=== PATIENT | female | born 1960 | race Caucasian/White ===

== ENCOUNTER 2016-08-16 06:59 | Day surgery (SDC) | payer OTHER ==
[2016-08-13 10:33] VITALS: BMI 26.2
[~2016-08-16 06:59] MED LIST: LACTATED RINGERS 1,000 ML IV SCH; LIDOCAINE 1% 20 ML VIAL (10MG/ML) FOR IV START INTRADERMA PRN
[2016-08-16 07:12] VITALS: RESP 18; TEMP 97.1
[2016-08-16 07:18] LABS: Glucose,Whole Blood 151 mg/dL (75-99)
[2016-08-16] MEDS ORDERED: PROPOFOL 10 MG/ML 20 ML VIAL IV ONE (07:36)
--- NOTE | 2016-08-16 07:51 | P.PCN ---
Date of Procedure: 08/16/16 Procedure(s) Performed: BRIEF HISTORY: Patient is a 56-year-old, pleasant, white female, scheduled for an upper endoscopy as a part of evaluation of progressive dysphagia to solids. 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 Symptoms are progressively getting worse and hence he scheduled for repeat upper endoscopy with dilation today. PROCEDURE PERFORMED: Esophagoscopy with dilation PREOPERATIVE DIAGNOSIS: Progressive dysphagia to solids and history of esophageal stricture. IV sedation per anesthesia. PROCEDURE: After informed consent was obtained, the patient was brought into the endoscopy unit. IV conscious sedation was administered by Anesthesia under continuous monitoring. Initially the Olympus GIF-140 video endoscope was inserted into the mouth. Esophagus intubated without any difficulty. There was a tight stricture noted in the proximal cervical esophagus 15 cm from the incisors. The scope could not be advanced beyond the stricture. The stricture had a very benign appearance. At this time the stricture was dilated using 8, 9 and 10 mm TTS balloon sequentially for total of 1-1/2 minutes. Following the dilation was not able to advance the scope beyond the stricture. Hence the procedure was terminated and the patient tolerated the procedure well. IMPRESSION: 1. Tight proximal cervical radiation-induced esophageal stricture status post balloon dilation using 8, 9 and 10 mm TTS balloon as described. 2. Scope could not be advanced into the stomach. RECOMMENDATIONS: The findings of this examination were discussed with the patient as well as a family. She was advised to remain on liquid diet for lunch today and advance as tolerated. She will follow up in the office as needed.
[2016-08-16 08:32] VITALS: BP 147/77; PULSE 74
[2016-08-16 08:34] LABS: Glucose,Whole Blood 169 mg/dL (75-99)
== END 2016-08-16 09:10 | disposition home or self-care (01) ==
LOC: ORWHC2ENDO 06:59
PROVIDERS: ATTEND Internal Medicine Gastroenterology
DX: K22.2 Esophageal obstruction (principal); E78.5 Hyperlipidemia, unspecified; J45.909 Unspecified asthma, uncomplicated; E07.9 Disorder of thyroid, unspecified; K21.9 Gastro-esophageal reflux disease without esophagitis; R73.9 Hyperglycemia, unspecified; Z88.5 Allergy status to narcotic agent; Z79.4 Long term (current) use of insulin; Z79.899 Other long term (current) drug therapy
CPT/HCPCS: 43249; J2704; C1726

== ENCOUNTER 2020-12-01 07:36 | Day surgery (SDC) | payer OTHER ==
[2020-11-30 08:37] VITALS: BMI 22.3
[~2020-12-01 07:36] MED LIST changes: -LIDOCAINE 1% 20 ML VIAL (10MG/ML) FOR IV START INTRADERMA PRN
[2020-12-01 08:07] VITALS: TEMP 98.2
[2020-12-01] MEDS ORDERED: LIDOCAINE 1% (10MG/ML) FOR IV START INTRADERMA ONE (08:17)
[2020-12-01 08:21] LABS: Glucose,Whole Blood 217 mg/dL (75-99)
[2020-12-01] MEDS ORDERED: INSULIN ASPART (NovoLOG) 100 UNIT/ML VIAL SQ ONE (08:40)
[2020-12-01] MEDS ORDERED: PROPOFOL 10 MG/ML 20 ML VIAL IV ONE (08:48)
[2020-12-01] MEDS ORDERED: LIDOCAINE 1% INJ 10MG/ML (20 ML MDV) ONE (08:48)
--- NOTE | 2020-12-01 09:02 | P.PCN ---
Date of Procedure: 12/01/20 Procedure(s) Performed: BRIEF HISTORY: Patient is a 52-year-old, pleasant, 8 white female scheduled for an upper endoscopy with dilation as a part of evaluation of dysphagia to solids. She has history of head and neck CA for which she underwent duration therapy 15 years ago and developed and radiation-induced proximal esophageal stricture for which she undergoes EGD with dilation on a periodic basis. The last one was in June 2019.. PROCEDURE PERFORMED: Esophagoscopy With dilation PREOPERATIVE DIAGNOSIS: Progressive dysphagia to solids and history of radiation-induced proximal esophageal stricture IV sedation per anesthesia. PROCEDURE: After informed consent was obtained, the patient was brought into the endoscopy unit. IV sedation was administered by Anesthesia under continuous monitoring. Initially the Olympus GIF-140 video endoscope was inserted into the mouth. Esophagus intubated without any difficulty. It was gradually advanced into the proximal esophagus where there was a tight esophagus stricture which are identified at 20 cm from the incisors. The scope could not be advanced the stricture. At this time he was dilated using 8-10 mm TTS balloon in a sequential fashion for 90 seconds. Following this I was not able to advance the scope into the distal esophagus. At this time the procedure was terminated and the patient tolerated the procedure well. IMPRESSION: 1. Proximal esophageal stricture status post balloon dilation using 8-10 mm TTS balloon in a sequential fashion as described above. 2. Scope could not be advanced through the stricture REOMMENDATIONS: The findings of this examination were discussed with the patient as well as her family. She will remain on a clear liquid diet for lunch today. She'll follow up in office as needed..
[2020-12-01 09:16] LABS: Glucose,Whole Blood 201 mg/dL (75-99)
[2020-12-01 09:20] VITALS: BP 125/77; PULSE 76; RESP 17
== END 2020-12-01 09:44 | disposition home or self-care (01) ==
LOC: ORWHC2ENDO 07:36
PROVIDERS: ATTEND Internal Medicine Gastroenterology
DX: K22.2 Esophageal obstruction (principal); Z92.3 Personal history of irradiation; I10 Essential (primary) hypertension; J44.9 Chronic obstructive pulmonary disease, unspecified; E11.8 Type 2 diabetes mellitus with unspecified complications; K21.9 Gastro-esophageal reflux disease without esophagitis; Z90.49 Acquired absence of other specified parts of digestive tract; Z98.51 Tubal ligation status; Z98.890 Other specified postprocedural states; Z80.0 Family history of malignant neoplasm of digestive organs; Z97.2 Presence of dental prosthetic device (complete) (partial); Z79.4 Long term (current) use of insulin; Z79.899 Other long term (current) drug therapy; Z88.5 Allergy status to narcotic agent
CPT/HCPCS: 43249; J2001; J2704; C1726

== ENCOUNTER 2021-12-05 07:51 | Day surgery (SDC) | payer OTHER ==
[2021-12-03 16:06] VITALS: BMI 27.4
[~2021-12-05 07:51] MED LIST changes: +LIDOCAINE 1% (10MG/ML) FOR IV START INTRADERMA PRN
[2021-12-05 08:42] VITALS: TEMP 97.1
[2021-12-05 09:06] LABS: Glucose,Whole Blood 133 mg/dL (75-99)
[2021-12-05] MEDS ORDERED: PROPOFOL 10 MG/ML 20 ML VIAL IV ONE (09:31)
--- NOTE | 2021-12-05 09:42 | P.PCN ---
Date of Procedure: 12/05/21 Procedure(s) Performed: BRIEF HISTORY: Patient is a 61-year-old, pleasant, white female scheduled for an upper endoscopy as a part of evaluation of progressive dysphagia to solids. She has history of proximal esophageal radiation induced stricture diagnosed several years ago. Patient has history of head and neck cancer in 2004 and is status post chemoradiation as well as surgery. She had multiple upper endoscopies with dilation performed in the last one was done in November 2020. Because of the worsening symptoms she is scheduled for repeat upper endoscopy with dilation today. PROCEDURE PERFORMED: Esophagoscopy with balloon dilation. PREOPERATIVE DIAGNOSIS: Aggressive dysphagia to solids and history of proximal esophageal radiation stricture. IV sedation per anesthesia. PROCEDURE: After informed consent was obtained, the patient was brought into the endoscopy unit. IV sedation was administered by Anesthesia under continuous monitoring. Initially the Olympus GIF-140 video endoscope was inserted into the mouth. Esophagus intubated without any difficulty. There was a benign-appearing tight proximal esophageal stricture at 40 cm from the anal verge. Scope could not be advanced through the stricture. At this time I proceeded with balloon dilation using 10-12 mm balloon in a sequential fashion for 60 seconds. Following the dilation I was still not able to advance the scope through the stricture. At this time the procedure was terminated and the patient tolerated the procedure well. IMPRESSION: 1. Tight proximal esophageal stricture status post balloon dilation using 10-11 mm TTS balloon. 2. Scope could not be advanced beyond the proximal esophageal stricture. RECOMMENDATIONS: The findings of this examination were discussed with the patient as well as her family. She was advised to be on a clear liquid diet today. Follow-up in the office in 6 months.
[2021-12-05 10:04] LABS: Glucose,Whole Blood 125 mg/dL (75-99)
[2021-12-05 10:05] VITALS: BP 105/70; PULSE 84; RESP 14
== END 2021-12-05 10:46 | disposition home or self-care (01) ==
LOC: ORWHC2ENDO 07:51
PROVIDERS: ATTEND Internal Medicine Gastroenterology
DX: K22.2 Esophageal obstruction (principal); Y84.2 Radiological procedure and radiotherapy as the cause of abnormal reaction of the patient, or of later complication, without mention of misadventure at the time of the procedure; Z92.21 Personal history of antineoplastic chemotherapy; J44.9 Chronic obstructive pulmonary disease, unspecified; Z85.21 Personal history of malignant neoplasm of larynx; Z90.02 Acquired absence of larynx; Z79.899 Other long term (current) drug therapy; Z79.4 Long term (current) use of insulin; Z88.5 Allergy status to narcotic agent
CPT/HCPCS: 43249; J2704; C1726